=== PATIENT | male | born 1970 | race Two or more races ===

== ENCOUNTER 2022-01-24 17:38 | Emergency (ER) | payer MEDICAID ==
[~2022-01-24] VITALS: Ht 172.7 cm; Wt 86.2 kg
--- NOTE | 2022-01-24 17:45 | NUR ---
BIBS FOR C/O GEN BODY PAIN. PT ATTCHED TO MONITOR, NO RESP DISTRESS NOTED. AWAITING MD ZAPATA.
[2022-01-24] MEDS ORDERED: IV NS 0.9% 1,000 ML BAG IV ONE (18:00)
[2022-01-24] MEDS ORDERED: KETOROLAC TROMETHAMINE INJ 30 MG/ML VIAL IV ONE (18:00)
[2022-01-24] MEDS ORDERED: IV NS 0.9% 250 ML IV ONE (18:08)
[2022-01-24] MEDS ORDERED: IOHEXOL-300 100 ML VIAL IV ONE (18:08)
[2022-01-24] MEDS ORDERED: KETOROLAC TROMETHAMINE 15 MG/ML VIAL ONE (18:10)
--- NOTE | 2022-01-24 18:10 | NUR ---
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
--- NOTE | 2022-01-24 18:23 | NUR ---
IV LINE ESTABLISHED ON LAC #18; IV FLUIDS INITIATED.
[2022-01-24 18:27] LABS: POTASSIUM 3.7 mmol/L (3.5-5.1)
[2022-01-24 18:41] LABS: ALBUMIN 3.8 g/dL (3.4-5.0); BILIRUBIN,DIRECT 0.1 mg/dL (0.0-0.2); BILIRUBIN,TOTAL 0.5 mg/dL (0.2-1.0); CALCIUM, SERUM 8.6 mg/dL (8.5-10.1); TOTAL PROTEIN, SERUM 7.8 g/dL (6.4-8.2)
--- NOTE | 2022-01-24 19:38 | NUR ---
DR MASSEY ON THE PHONE WITH DR LEE, GEN SURG
[2022-01-24 19:48] LABS: BASOPHILS % (AUTO) 0.2 % (0.0-2.0); EOSINOPHILS % (AUTO) 0.2 % (0.0-6.0); HEMATOCRIT 36 % (39-51); HEMOGLOBIN 10.8 g/dL (13.5-17.5); LYMPHOCYTES # (AUTO) 1.4 K/uL (0.8-4.8); MEAN CORPUSCULAR HGB CONC 30 g/dl (31.0-36.0); MEAN CORPUSCULAR VOLUME 72 fL (80-96); MONOCYTES # (AUTO) 1.3 K/uL (0.1-1.30); MONOCYTES % (AUTO) 8.8 % (2.0-12.0); NEUTROPHILS # (AUTO) 12.3 K/uL (1.8-8.9); NEUTROPHILS % (AUTO) 81.8 % (43.0-81.0); PLATELET COUNT (AUTO) 308 K/uL (150-450); RED BLOOD CELL COUNT(AUTO) 4.93 MIL/uL (4.5-6.0)
[2022-01-24] MEDS ORDERED: PIPERACILLIN /TAZOBACTAM 3.375 G in IV D5W 50 ML IV ONE (20:00)
[2022-01-24] MEDS ORDERED: PIPERACILLIN /TAZOBACTAM 3.375 G VIAL IV ONE (20:16)
[2022-01-24] MEDS ORDERED: SULF1TAB48 PO (21:07)
--- NOTE | 2022-01-24 21:19 | NUR ---
IV removed. Catheter intact and site benign. Pressure and 4x4 applied to site. No bleeding noted.
--- NOTE | 2022-01-24 21:25 | NUR ---
Patient does not wish to proceed with medical care recommended by Dr. Garcia. Patient given information related to possible complications, up to and including , which could occur as a result of leaving the hospital at this time. Patient verbalizes understanding of risks involved due to leaving against medical advice. Patient has signed AMA form.
[2022-01-24 21:28] VITALS: BP 172/100
== END 2022-01-24 21:28 | disposition left against medical advice (07) ==
LOC: ER 17:47
DX: K61.1 Rectal abscess (principal); Z79.899 Other long term (current) drug therapy
CPT/HCPCS: 99285; 74177; 96365; 96361; 96375; 85025; 80048; 80076; 36415; 82607; 85730; J2543; J7060; J7030; J7050; Q9967; J1885